=== PATIENT | female | born 1955 | race Caucasian/White ===

== ENCOUNTER 2016-12-28 14:09 | Emergency (ER) | payer OTHER ==
[~2016-12-28] VITALS: Ht 157.5 cm; Wt 91.0 kg
[~2016-12-28 14:09] MED LIST: AMOXICILLIN500 MG PO; ASPIRIN CHEWABL81 M1 PO; ASPIRIN325 MG PO; BUPROPION XL300 MG PO; CARDIZEM30 MG PO; CARTIA XT120 MG PO; CYMBALTA60 MG PO; FLONASE16 G1 BOTH NARES; KLONOPIN0.5 MG PO; LEVOCETIRIZINE D5 MG PO; LEVOTHYROXINE125 MCG PO; LORAZEPAM1 MG PO; Motrin PO; NAPROSYN500 MG PO; NORTRIPTYLINE H25 MG PO; NORTRIPTYLINE H50 MG PO; OMEPRAZOLE40 M1 PO; PRAVASTATIN SOD40 MG PO; PROTONIX40 MG PO; RANITIDINE HCL150 M1 PO; RISPERDAL0.5 MG PO; ROBITUSSIN AC,T10 ML PO; SYNTHROID112 MCG PO; TESSALON PERLE100 MG PO; TIROSINT125 MCG PO; TOPAMAX25 MG PO; TOPIRAMATE50 MG PO; TRAMADOL HCL50 MG PO; WELLBUTRIN XL300 MG PO; ZITHROMAX250 MG PO
[2016-12-28 15:17] LABS: HEMATOCRIT 42.2 % (36.0-46.0); MCH 30.2 PG (29.0-34.0); MCHC 32.7 G/DL (30.0-36.0); MCV 92.3 FL (83-99); MEAN PLAT.VOLUME 10.5 uM^3 (9.5-12.4); PLATELET COUNT 408 K/uL (156-360); RBC DIS.WIDTH-CV 12.8 % (11.8-14.6); RBC DIS.WIDTH-SD 43.6 % (39-53); RED BLOOD COUNT 4.57 M/uL (3.80-5.20); WHITE BLOOD COUNT 6.5 K/uL (4.1-10.2)
[2016-12-28 15:28] LABS: CHLORIDE 106 mEq/L (99-109); POTASSIUM 4.1 mEq/L (3.7-5.4); SODIUM 142 mEq/L (136-147)
[2016-12-28 15:30] LABS: GLUCOSE 102 mg/dL (70-99)
[2016-12-28 15:31] LABS: ANION GAP 11 MEQ/L (2-14)
[2016-12-28 15:34] LABS: GFR ESTIMATE (CALCULATED) > 59 mL/min/; UREA NITROGEN (BUN) 9 mg/dL (9-23)
[2016-12-28 15:38] LABS: TROP-I INTERPRETATION NEGATIVE; TROPONIN-I < 0.01 ng/mL (0.0-0.30)
[2016-12-28 17:24] LABS: TROP-I INTERPRETATION NEGATIVE; TROPONIN-I < 0.01 ng/mL (0.0-0.30)
[2016-12-28] MEDS ORDERED: FLEXERIL10 MG PO (17:58)
[2016-12-28 18:52] VITALS: BP 148/94
== END 2016-12-28 18:50 | disposition home or self-care (01) ==
LOC: EME 14:09
PROVIDERS: Nurse Practitioner Family
DX: R07.89 Other chest pain (principal); F41.9 Anxiety disorder, unspecified; R00.0 Tachycardia, unspecified; E03.9 Hypothyroidism, unspecified; Z87.891 Personal history of nicotine dependence
CPT/HCPCS: 71020; 80048; 84484; 85027; 93005; 99281; 99285

== ENCOUNTER 2017-05-17 19:04 | Emergency (ER) | payer OTHER ==
[~2017-05-17] VITALS: Ht 157.5 cm; Wt 89.2 kg
[~2017-05-17 19:04] MED LIST changes: +FLEXERIL10 MG PO
[2017-05-17 20:00] LABS: BASOPHIL COUNT 0.1 K/uL (0-0.1); EOSINOPHIL (%) 4.5 % (0-5); EOSINOPHIL COUNT 0.3 K/uL (0-0.3); HEMATOCRIT 41.4 % (36.0-46.0); IMMATURE GRANULOCYTE (%) 0.1 % (0.0-0.7); INSTRUMENT ABS NEUTROPHIL CT 3.2 K/uL; LYMPHOCYTE COUNT 2.6 K/uL (1.0-2.8); MCH 30.1 PG (29.0-34.0); MCHC 33.1 G/DL (30.0-36.0); MEAN PLAT.VOLUME 10.4 uM^3 (9.5-12.4); MONOCYTE (%) 8.5 % (3-12); MONOCYTE COUNT 0.6 K/uL (0-0.8); NEUTROPHIL (%) 47.8 % (45-76); NEUTROPHIL COUNT 3.2 K/uL (1.8-6.4); PLATELET COUNT 351 K/uL (156-360); RBC DIS.WIDTH-CV 13.2 % (11.8-14.6); RBC DIS.WIDTH-SD 44.2 % (39-53); RED BLOOD COUNT 4.55 M/uL (3.80-5.20); WHITE BLOOD COUNT 6.7 K/uL (4.1-10.2)
[2017-05-17 20:08] LABS: CHLORIDE 111 mEq/L (99-109); POTASSIUM 4.3 mEq/L (3.7-5.4); SODIUM 141 mEq/L (136-147)
[2017-05-17 20:10] LABS: GLUCOSE 99 mg/dL (70-99)
[2017-05-17 20:11] LABS: ANION GAP 9 MEQ/L (2-14)
[2017-05-17 20:12] LABS: TOTAL BILIRUBIN 0.3 mg/dL (0.0-1.0)
[2017-05-17 20:14] LABS: ALKALINE PHOSPHATASE 109 IU/L (3-129); GFR ESTIMATE (CALCULATED) > 59 mL/min/
[2017-05-17 20:15] LABS: UREA NITROGEN (BUN) 13 mg/dL (9-23)
[2017-05-17 20:17] LABS: CREATINE KINASE 54 IU/L (1-294); TOTAL CK 54 IU/L (1-294)
[2017-05-17 20:20] LABS: TROP-I INTERPRETATION NEGATIVE; TROPONIN-I < 0.01 ng/mL (0.0-0.30)
[2017-05-17 20:24] LABS: CK-MB 0.7 ng/mL (0.0-4.9)
[2017-05-17 21:09] LABS: D-DIMER ELISA < 150.00 ng/mLDDU (<230)
[2017-05-17 23:10] LABS: TROP-I INTERPRETATION NEGATIVE; TROPONIN-I < 0.01 ng/mL (0.0-0.30)
[2017-05-17] MEDS ORDERED: MOTRIN600 MG PO (23:56)
[2017-05-17] MEDS ORDERED: NORCO 5/3251 TABLET PO (23:56)
[2017-05-18 00:53] VITALS: BP 136/91
== END 2017-05-18 01:01 | disposition home or self-care (01) ==
LOC: EME → EDBD 19:04 → EME 19:04
PROVIDERS: Emergency Medicine
DX: B34.9 Viral infection, unspecified (principal); R09.1 Pleurisy; R05 Cough; R11.2 Nausea with vomiting, unspecified; R19.7 Diarrhea, unspecified; M54.2 Cervicalgia; E03.9 Hypothyroidism, unspecified; Z87.891 Personal history of nicotine dependence
CPT/HCPCS: 71020; 80053; 82550; 82553; 84484; 85025; 85379; 93005; 99281; 99285; J1885

== ENCOUNTER → 2017-06-12 | Outpatient (CLI) | payer OTHER ==
[~2017-06-12] MED LIST changes: +MOTRIN600 MG PO; +NORCO 5/3251 TABLET PO
[2017-06-12 16:27] LABS: APPEARANCE CLEAR/COLORLESS
[2017-06-12 16:28] LABS: RED CELL AREA COUNTED 18; RED CELL COUNT 127 /MM^3 (0-1); RED CELL DILUTION 1; WBC AREA COUNTED 18; WBC DILUTION 1; WHITE CELL COUNT 0 /MM^3 (0-5); WHITE CELL RAW COUNT 0
[2017-06-12 16:29] LABS: APPEARANCE (RECHECK) CLEAR/COLORLESS; CSF TUBE NUMBER (RECHECK) TUBE #1; RED CELL AREA COUNTED 18; RED CELL COUNT (RECHECK) 109 /MM^3 (0-1); RED CELL DILUTION 1
[2017-06-16 21:07] LABS: Albumin, Serum 3.7 g/dL (3.5-4.9); IgG Index, CSF 0.38 index (<0.66); Synthesis Rate IgG, CSF -5.6 mg/24 h (-9.9-3.3)
== END | disposition home or self-care (01) ==
LOC: RAD 14:48
PROVIDERS: Nurse Practitioner Primary Care
PROC: 009U3ZZ Drainage of Spinal Canal, Percutaneous Approach (ICD-10-PCS; principal; 2017-06-12)
DX: R20.2 Paresthesia of skin (principal); G35 Multiple sclerosis; B99.9 Unspecified infectious disease
CPT/HCPCS: 62270; 77003; 82040 90; 82042 90; 82784 90; 82945; 83873 90; 83916 90; 84157; 87070; 87205; 89051